=== PATIENT | male | born 1935 | race Asian ===

== ENCOUNTER 2016-09-30 12:16 | Inpatient (IN) | payer OTHER ==
[~2016-09-30] VITALS: Ht 162.6 cm; Wt 58.0 kg
[~2016-09-30 12:16] MED LIST: NOCURR
[2016-09-30] MEDS ORDERED: OS500 PO (12:19)
[2016-09-30] MEDS ORDERED: VALS80TA2 PO (12:19)
[2016-09-30 14:03] LABS: BASOPHILS % (AUTO) 1.5 % (0.0-2.0); EOSINOPHILS % (AUTO) 1.4 % (1.0-6.0); HEMATOCRIT 43.5 % (41-53); HEMOGLOBIN 14.6 g/dL (13.5-17.5); LYMPHOCYTES # (AUTO) 2.7 K/uL (1.0-4.8); LYMPHOCYTES % (AUTO) 38.2 % (22.0-44.0); MEAN CORPUSCULAR HEMOGLOBIN 29.6 pg (26.0-34.0); MEAN CORPUSCULAR HGB CONC 33.6 G/dL (31.0-37.0); MEAN CORPUSCULAR VOLUME 88 fL (80-100); MONOCYTES # (AUTO) 0.4 K/uL (0.1-1.0); MONOCYTES % (AUTO) 5.1 % (2.0-9.0); NEUTROPHILS # (AUTO) 3.8 K/uL (1.8-7.7); NEUTROPHILS % (AUTO) 53.8 % (40.0-70.0); PLATELET COUNT (AUTO) 202 K/uL (150-450); RED BLOOD CELL COUNT(AUTO) 4.94 MIL/uL (4.50-5.90); WHITE BLOOD COUNT (AUTO) 7.1 K/uL (4.5-11.0)
[2016-09-30 14:08] LABS: ANION GAP 9 mmol/L (8-16); CALCIUM, TOTAL 9.1 mg/dL (8.8-10.5); CARBON DIOXIDE 28 mmol/L (22-29); CHLORIDE 104 mmol/L (98-107); GLOMERULAR FILTR. RATE CALC > 60 mL/min (>60); POTASSIUM 4.1 mmol/L (3.5-5.1); SODIUM SERUM 141 mmol/L (136-145); UREA NITROGEN, BLOOD 17 mg/dL (7-18)
[2016-09-30 14:33] LABS: ALANINE AMINOTRANSFERASE 18 U/L (12-78); ALBUMIN 3.8 g/dL (3.4-5.0); ASPARTATE AMINOTRANSFERASE 18 U/L (15-37); BILIRUBIN,TOTAL 0.9 mg/dL (0.1-1.0); CREATINE KINASE MB 1.4 ng/mL (0-5); CREATINE KINASE, TOTAL 113 U/L (39-308); TOTAL PROTEIN, SERUM 7.6 g/dL (6.4-8.2)
[2016-09-30 14:45] LABS: PROTHROMBIN TIME 10.4 SEC (9.4-11.6)
[2016-09-30] MEDS ORDERED: DOCUSATE SODIUM 100 MG CAPSULE PO PRN (19:15)
[2016-09-30] MEDS ORDERED: ONDANSETRON HCL 4 MG/2 ML VIAL IVP PRN (19:15)
[2016-09-30] MEDS ORDERED: IPRATROPIUM BROMIDE 0.5 MG/2.5 ML NEB SOLUTION NEB PRN (19:15)
[2016-09-30] MEDS ORDERED: ALBUTEROL SULFATE 2.5 MG/0.5 ML NEB SOLUTION NEB PRN (19:15)
[2016-09-30] MEDS ORDERED: MAGNESIUM HYDROXIDE SUSPENSION 30 ML UDCUP PO PRN (19:15)
[2016-09-30] MEDS ORDERED: BISACODYL 10 MG RECTAL RECTAL SUPPOSITORY PR PRN (19:15)
[2016-09-30 20:00] VITALS: BP 171/98
[2016-09-30] MEDS: PANTOPRAZOLE SODIUM 40 MG DR TABLET PO SCH (21:06)
[2016-09-30] MEDS: ENALAPRILAT DIHYDRATE 1.25 MG/ML VIAL IVP PRN (21:07)
[2016-09-30 23:35] VITALS: BP 152/84
[2016-10-01] VITALS (7 sets, daily range): BP systolic 132–183; BP diastolic 58–86
[2016-10-01] MEDS: ENALAPRILAT DIHYDRATE 1.25 MG/ML VIAL IVP PRN ×2 (04:43→10:26)
[2016-10-01] MEDS ORDERED: PNEUMOCOCCAL VACCINE POLYVALENT 0.5 ML VIAL [PPSV23] IM ONE (05:30)
[2016-10-01 06:47] LABS: ALANINE AMINOTRANSFERASE 9 U/L (12-78); ALBUMIN 3.3 g/dL (3.4-5.0); ANION GAP 12 mmol/L (8-16); ASPARTATE AMINOTRANSFERASE 18 U/L (15-37); BILIRUBIN,TOTAL 1.1 mg/dL (0.1-1.0); CALCIUM, TOTAL 8.5 mg/dL (8.8-10.5); CARBON DIOXIDE 24 mmol/L (22-29); CHLORIDE 104 mmol/L (98-107); CHOL/HDL RATIO 3.5 (4.2-7.3); CREATININE 0.96 mg/dL (0.60-1.30); GLOMERULAR FILTR. RATE CALC > 60 mL/min (>60); PHOSPHORUS 3.2 mg/dL (2.5-4.9); POTASSIUM 3.5 mmol/L (3.5-5.1); SODIUM SERUM 140 mmol/L (136-145); TOTAL PROTEIN, SERUM 6.6 g/dL (6.4-8.2); UREA NITROGEN, BLOOD 11 mg/dL (7-18)
[2016-10-01 06:48] LABS: BASOPHILS % (AUTO) 0.9 % (0.0-2.0); EOSINOPHILS % (AUTO) 1.9 % (1.0-6.0); HEMATOCRIT 41.7 % (41-53); HEMOGLOBIN 14.1 g/dL (13.5-17.5); LYMPHOCYTES % (AUTO) 26.1 % (22.0-44.0); MEAN CORPUSCULAR HEMOGLOBIN 29.9 pg (26.0-34.0); MEAN CORPUSCULAR HGB CONC 33.9 G/dL (31.0-37.0); MEAN CORPUSCULAR VOLUME 88 fL (80-100); MONOCYTES # (AUTO) 0.5 K/uL (0.1-1.0); MONOCYTES % (AUTO) 6.9 % (2.0-9.0); NEUTROPHILS # (AUTO) 4.9 K/uL (1.8-7.7); NEUTROPHILS % (AUTO) 64.2 % (40.0-70.0); PLATELET COUNT (AUTO) 192 K/uL (150-450); RED BLOOD CELL COUNT(AUTO) 4.73 MIL/uL (4.50-5.90); RED CELL DISTRIBUTION WIDTH 13.9 % (11.5-14.5); WHITE BLOOD COUNT (AUTO) 7.6 K/uL (4.5-11.0)
[2016-10-01] MEDS: PANTOPRAZOLE SODIUM 40 MG DR TABLET PO SCH (09:00)
[2016-10-01] MEDS: AmLODIPine BESYLATE 5 MG TABLET PO SCH (09:00)
[2016-10-01] MEDS ORDERED: MAGNESIUM SULFATE 4 GM/WATER 100 ML IV PRN (09:45)
[2016-10-01] MEDS ORDERED: POTASSIUM CHLORIDE 10% 40 MEQ/30 ML LIQUID UDCUP PO PRN (09:45)
[2016-10-01] MEDS ORDERED: MAGNESIUM OXIDE 400 MG TABLET PO PRN (09:45)
[2016-10-01] MEDS ORDERED: POTASSIUM CHL 10 MEQ/WATER 50 ML IV PRN (09:45)
[2016-10-01] MEDS ORDERED: DEXTROSE 5%-0.45% SODIUM CHL 1,000 ML IV ONE (09:45)
[2016-10-01] MEDS ORDERED: POTASSIUM CHLORIDE 20 MEQ ER TABLET PO PRN (09:45)
[2016-10-01] MEDS ORDERED: MAGNESIUM SULFATE 2 GM in DEXTROSE 5%-WATER 50 ML IV PRN (09:45)
[2016-10-01] MEDS ORDERED: PROPOFOL 1% 20 ML VIAL IVP ONE (12:00)
[2016-10-01] MEDS ORDERED: GLYCOPYRROLATE 0.2 MG/ML VIAL IM ONE (12:00)
[2016-10-01] MEDS ORDERED: ROCURONIUM BROMIDE 10 MG/ML 5 ML VIAL IVP ONE (12:00)
[2016-10-01] MEDS ORDERED: NEOSTIGMINE METHYLSULFATE 1 MG/ML 10 ML VIAL IVP ONE (12:00)
[2016-10-01] MEDS ORDERED: FentaNYL CITRATE-PF 100 MCG/2 ML VIAL IVP ONE (12:00)
[2016-10-01] MEDS ORDERED: MIDAZOLAM HCL 2 MG/2 ML VIAL IVP ONE (12:00)
[2016-10-01] MEDS ORDERED: CefoTEtan DISODIUM 1 GM/VIAL IVP ONE (12:00)
[2016-10-01] MEDS ORDERED: ESMOLOL HCL 10 MG/ML 10 ML VIAL IVP ONE (12:00)
[2016-10-01] MEDS ORDERED: LIDOCAINE HCL/PF 2% 5 ML SYRINGE IVP ONE (12:00)
[2016-10-01] MEDS ORDERED: SODIUM CHLORIDE 0.9% 1,000 ML IV ONE ×2 (13:15→16:01)
[2016-10-01] MEDS ORDERED: CeFAZolin 1 GM/DEXTROSE 50 ML IV ONE (13:15)
[2016-10-01] MEDS ORDERED: CIPROFLOXACIN 400 MG/D5% WATER 200 ML IV ONE (13:15)
[2016-10-01 13:44] LABS: BASOPHILS % (AUTO) 0.5 % (0.0-2.0); EOSINOPHILS % (AUTO) 0.6 % (1.0-6.0); HEMATOCRIT 42.8 % (41-53); HEMOGLOBIN 14.5 g/dL (13.5-17.5); LYMPHOCYTES # (AUTO) 1.6 K/uL (1.0-4.8); LYMPHOCYTES % (AUTO) 22.8 % (22.0-44.0); MEAN CORPUSCULAR HEMOGLOBIN 29.7 pg (26.0-34.0); MEAN CORPUSCULAR HGB CONC 33.8 G/dL (31.0-37.0); MEAN CORPUSCULAR VOLUME 88 fL (80-100); MONOCYTES # (AUTO) 0.4 K/uL (0.1-1.0); MONOCYTES % (AUTO) 5.3 % (2.0-9.0); NEUTROPHILS # (AUTO) 4.9 K/uL (1.8-7.7); NEUTROPHILS % (AUTO) 70.8 % (40.0-70.0); PLATELET COUNT (AUTO) 215 K/uL (150-450); RED BLOOD CELL COUNT(AUTO) 4.87 MIL/uL (4.50-5.90); RED CELL DISTRIBUTION WIDTH 13.9 % (11.5-14.5); WHITE BLOOD COUNT (AUTO) 6.9 K/uL (4.5-11.0)
[2016-10-01 14:48] LABS: ANION GAP 15 mmol/L (8-16); CALCIUM, TOTAL 8.5 mg/dL (8.8-10.5); CARBON DIOXIDE 21 mmol/L (22-29); CHLORIDE 102 mmol/L (98-107); CREATININE 0.94 mg/dL (0.60-1.30); GLOMERULAR FILTR. RATE CALC > 60 mL/min (>60); POTASSIUM 3.6 mmol/L (3.5-5.1); SODIUM SERUM 138 mmol/L (136-145); UREA NITROGEN, BLOOD 11 mg/dL (7-18)
[2016-10-01 14:53] LABS: ALANINE AMINOTRANSFERASE 15 U/L (12-78); ALBUMIN 3.5 g/dL (3.4-5.0); ASPARTATE AMINOTRANSFERASE 23 U/L (15-37); BILIRUBIN,TOTAL 0.9 mg/dL (0.1-1.0); TOTAL PROTEIN, SERUM 7.1 g/dL (6.4-8.2)
[2016-10-01] MEDS ORDERED: HEPARIN SODIUM 1000 UNITS/NS 500 ML ONE (15:58)
[2016-10-01] MEDS ORDERED: GUM MASTIC/STORAX/MSAL/ALCOHOL LIQUID 0.67 ML VIAL TP ONE (15:58)
[2016-10-01] MEDS ORDERED: LIDOCAINE HCL 1%/EPI 1:200,000/PF 30 ML VIAL ONE (16:00)
[2016-10-01] MEDS ORDERED: VANCOMYCIN HCL 1 GM/VIAL ONE ×2 (16:00→21:19)
[2016-10-01] MEDS ORDERED: SODIUM CHLORIDE 0.9% 50 ML ONE (16:01)
[2016-10-01] MEDS ORDERED: GELATIN SPONGE,ABSORBABLE 100 MM TP ONE ×3 (16:01→21:20)
[2016-10-01] MEDS ORDERED: SODIUM CHLORIDE 0.9% 250 ML IV ONE (16:01)
[2016-10-01] MEDS ORDERED: SODIUM CHLORIDE 0.9% 0 ML ONE (16:01)
[2016-10-01] MEDS ORDERED: RINGERS SOLUTION,LACTATED 1,000 ML IV ONE ×3 (16:01→17:36)
[2016-10-01] MEDS ORDERED: THROMBIN, BOVINE 20000 UNITS/VIAL POWDER TP ONE ×3 (16:02→21:21)
[2016-10-01] MEDS ORDERED: BACITRACIN 50,000 UNITS/VIAL ONE (16:02)
[2016-10-01 18:12] LABS: ABG A-A DIFF O2 16.6 mmHg (10-20.0); ABG BASE EXCESS -4.6 mmol/L (-2.0-3.0); ABG HCO3 21.7 mmol/L (22.0-26.0); ABG OXYHEMOGLOBIN 96.7 % (94.0-100.0); ABG PCO2 31 mmHg (35-45); ABG PH 7.422 (7.35-7.450); TEMPERATURE, FAHRENHEIT, BG 98.6 FAHREN (96.0-98.6)
[2016-10-01] MEDS ORDERED: HYDROmorphone 2 MG/ML SYRINGE IVP PRN (18:30)
[2016-10-01] MEDS ORDERED: MANNITOL 25%-12.5 GM/50 ML VIAL IVP ONE (18:46)
[2016-10-01] MEDS ORDERED: PHENYTOIN SODIUM 50 MG/ML IV ONE ×3 (19:17→19:33)
[2016-10-01] MEDS ORDERED: BACITRACIN 28.4 GM OINTMENT TP ONE (19:41)
[2016-10-01] MEDS ORDERED: LORazepam 2 MG/ML VIAL IVP PRN (20:17)
[2016-10-01] MEDS ORDERED: LORazepam 2 MG/ML VIAL ONE (21:18)
[2016-10-01] MEDS ORDERED: SODIUM CHLORIDE 0.9% 10 ML ONE (21:19)
[2016-10-01] MEDS ORDERED: LIDOCAINE HCL 1%/EPI 1:200,000/PF 10 ML VIAL ONE (21:19)
[2016-10-01] MEDS ORDERED: GELATIN SPONGE,ABSORBABLE 50 MM TP ONE (21:20)
[2016-10-01] MEDS ORDERED: ROCURONIUM BROMIDE 10 MG/ML 5 ML VIAL ONE (21:31)
[2016-10-01] MEDS ORDERED: PHENYLEPHRINE 200 MG/D5%-WATER 250 ML IV ONE (21:40)
[2016-10-01 22:10] LABS: BASOPHILS # (AUTO) 0.04 K/uL (0.00-0.20); BASOPHILS % (AUTO) 0.3 % (0.0-2.0); EOSINOPHILS # (AUTO) 0.06 K/uL (0.00-0.70); EOSINOPHILS % (AUTO) 0.49 % (1.0-6.0); HEMATOCRIT 39.9 % (41-53); HEMOGLOBIN 13.2 g/dL (13.5-17.5); LYMPHOCYTES # (AUTO) 1.4 K/uL (1.0-4.8); LYMPHOCYTES % (AUTO) 12.1 % (22.0-44.0); MEAN CORPUSCULAR HEMOGLOBIN 29.8 pg (26.0-34.0); MEAN CORPUSCULAR VOLUME 90 fL (80-100); MONOCYTES # (AUTO) 0.3 K/uL (0.1-1.0); MONOCYTES % (AUTO) 2.6 % (2.0-9.0); NEUTROPHILS # (AUTO) 9.6 K/uL (1.8-7.7); NEUTROPHILS % (AUTO) 84.5 % (40.0-70.0); PLATELET COUNT (AUTO) 183 K/uL (150-450); RED BLOOD CELL COUNT(AUTO) 4.42 MIL/uL (4.50-5.90); RED CELL DISTRIBUTION WIDTH 13.6 % (11.5-14.5); WHITE BLOOD COUNT (AUTO) 11.4 K/uL (4.5-11.0)
[2016-10-01 22:20] LABS: PROTHROMBIN TIME 10.9 SEC (9.4-11.6)
[2016-10-01] MEDS ORDERED: PROPOFOL 1000 MG/ISO-OSM 100 ML IV ONE (22:24)
[2016-10-01] MEDS: PROPOFOL 1000 MG/ISO-OSM 100 ML IV PRN (22:25)
[2016-10-01 22:59] LABS: ABG BASE EXCESS -9.4 mmol/L (-2.0-3.0); ABG HCO3 17.6 mmol/L (22.0-26.0); ABG OXYHEMOGLOBIN 98.7 % (94.0-100.0); ABG PCO2 38 mmHg (35-45); ABG PH 7.282 (7.35-7.450); TEMPERATURE, FAHRENHEIT, BG 97.7 FAHREN (96.0-98.6)
[2016-10-01] MEDS ORDERED: NOREPINEPHRINE 4 MG/D5%-WATER 250 ML IV PRN (22:59)
[2016-10-01] MEDS ORDERED: FentaNYL CITRATE PF 500 MCG in DEXTROSE 5%-WATER 90 ML IV PRN (22:59)
[2016-10-01] MEDS ORDERED: PHENYLEPHRINE 200 MG/D5%-WATER 250 ML IV PRN (23:00)
[2016-10-01] MEDS: LevETIRAcetam 500 MG in DEXTROSE 5%-WATER 100 ML IV SCH (23:13)
[2016-10-01] MEDS: CeFAZolin 2 GM/DEXTROSE 50 ML IV SCH (23:13)
[2016-10-02] VITALS: BP 143/57
[2016-10-02] MEDS: OxyCODONE HCL/ACETAMINOPHEN 10-325 MG TABLET PO SCH ×6 (00:16→20:00)
[2016-10-02 04:00] VITALS: BP 133/63
[2016-10-02] MEDS: CeFAZolin 2 GM/DEXTROSE 50 ML IV SCH ×3 (05:05→20:26)
[2016-10-02 05:41] LABS: BASOPHILS # (AUTO) 0.01 K/uL (0.00-0.20); BASOPHILS % (AUTO) 0.1 % (0.0-2.0); EOSINOPHILS % (AUTO) 0 % (1.0-6.0); HEMATOCRIT 40.5 % (41-53); HEMOGLOBIN 13.5 g/dL (13.5-17.5); LYMPHOCYTES # (AUTO) 0.8 K/uL (1.0-4.8); LYMPHOCYTES % (AUTO) 5.6 % (22.0-44.0); MEAN CORPUSCULAR HEMOGLOBIN 29.8 pg (26.0-34.0); MEAN CORPUSCULAR HGB CONC 33.3 G/dL (31.0-37.0); MEAN CORPUSCULAR VOLUME 89 fL (80-100); MONOCYTES # (AUTO) 0.7 K/uL (0.1-1.0); MONOCYTES % (AUTO) 4.9 % (2.0-9.0); NEUTROPHILS # (AUTO) 12.9 K/uL (1.8-7.7); PLATELET COUNT (AUTO) 193 K/uL (150-450); RED BLOOD CELL COUNT(AUTO) 4.53 MIL/uL (4.50-5.90); RED CELL DISTRIBUTION WIDTH 13.7 % (11.5-14.5); WHITE BLOOD COUNT (AUTO) 14.4 K/uL (4.5-11.0)
[2016-10-02 06:02] LABS: CALCIUM, TOTAL 8.2 mg/dL (8.8-10.5); CREATININE 1.38 mg/dL (0.60-1.30); MAGNESIUM 1.8 mg/dL (1.80-2.40); POTASSIUM 3.7 mmol/L (3.5-5.1)
[2016-10-02 06:41] LABS: NEUTROPHILS % (AUTO) 89.5 % (40.0-70.0)
[2016-10-02] MEDS: LevETIRAcetam 500 MG in DEXTROSE 5%-WATER 100 ML IV SCH ×2 (06:42→18:26)
[2016-10-02 08:00] VITALS: BP 88/57
[2016-10-02] MEDS: ATORVASTATIN CALCIUM 20 MG TABLET PO SCH (08:35)
[2016-10-02] MEDS: AmLODIPine BESYLATE 5 MG TABLET PO SCH (08:36)
[2016-10-02] MEDS: PANTOPRAZOLE SODIUM 40 MG DR TABLET PO SCH (08:36)
[2016-10-02] MEDS: SODIUM CHLORIDE 3% 500 ML IV SCH (09:15)
[2016-10-02 12:00] VITALS: BP 126/54
[2016-10-02 16:00] VITALS: BP 142/56
[2016-10-02 18:31] LABS: CREATINE KINASE MB 3.7 ng/mL (0-5); CREATINE KINASE, TOTAL 348 U/L (39-308)
[2016-10-02 20:00] VITALS: BP 107/47
[2016-10-03] VITALS: BP 126/48
[2016-10-03 02:14] LABS: SODIUM SERUM 143 mmol/L (136-145)
[2016-10-03 02:47] LABS: CREATINE KINASE MB 2.5 ng/mL (0-5); CREATINE KINASE, TOTAL 271 U/L (39-308)
[2016-10-03] MEDS: SODIUM CHLORIDE 3% 500 ML IV SCH ×2 (03:21→23:47)
[2016-10-03] MEDS: OxyCODONE HCL/ACETAMINOPHEN 10-325 MG TABLET PO SCH ×7 (03:21→23:49)
[2016-10-03] MEDS: PROPOFOL 1000 MG/ISO-OSM 100 ML IV PRN ×2 (03:21→13:27)
[2016-10-03 04:00] VITALS: BP 131/53
[2016-10-03] MEDS: CeFAZolin 2 GM/DEXTROSE 50 ML IV SCH ×3 (05:00→19:23)
[2016-10-03] MEDS: LevETIRAcetam 500 MG in DEXTROSE 5%-WATER 100 ML IV SCH ×2 (06:00→18:41)
[2016-10-03 06:07] LABS: BASOPHILS % (AUTO) 0.3 % (0.0-2.0); EOSINOPHILS % (AUTO) 0.1 % (1.0-6.0); HEMATOCRIT 34.7 % (41-53); HEMOGLOBIN 11.7 g/dL (13.5-17.5); LYMPHOCYTES # (AUTO) 1.9 K/uL (1.0-4.8); LYMPHOCYTES % (AUTO) 14.3 % (22.0-44.0); MEAN CORPUSCULAR HEMOGLOBIN 30.3 pg (26.0-34.0); MEAN CORPUSCULAR HGB CONC 33.7 G/dL (31.0-37.0); MEAN CORPUSCULAR VOLUME 90 fL (80-100); MONOCYTES % (AUTO) 7.3 % (2.0-9.0); NEUTROPHILS # (AUTO) 10.5 K/uL (1.8-7.7); PLATELET COUNT (AUTO) 163 K/uL (150-450); RED BLOOD CELL COUNT(AUTO) 3.86 MIL/uL (4.50-5.90); RED CELL DISTRIBUTION WIDTH 13.9 % (11.5-14.5); WHITE BLOOD COUNT (AUTO) 13.5 K/uL (4.5-11.0)
[2016-10-03] MEDS: HydrALAZINE HCL 20 MG/ML VIAL IVP PRN ×2 (06:26→19:21)
[2016-10-03 06:33] LABS: ALBUMIN 2.3 g/dL (3.4-5.0); BILIRUBIN,TOTAL 0.3 mg/dL (0.1-1.0); CREATININE 1.91 mg/dL (0.60-1.30); MAGNESIUM 1.8 mg/dL (1.80-2.40); PHOSPHORUS 4.9 mg/dL (2.5-4.9); POTASSIUM 4.1 mmol/L (3.5-5.1); THYROID STIMULATING HORMONE 0.38 uIU/mL (0.36-3.74); TOTAL PROTEIN, SERUM 5.4 g/dL (6.4-8.2)
[2016-10-03 07:50] LABS: ABG A-A DIFF O2 116.6 mmHg (10-20.0); ABG BASE EXCESS -2.5 mmol/L (-2.0-3.0); ABG HCO3 23.4 mmol/L (22.0-26.0); ABG OXYHEMOGLOBIN 98.3 % (94.0-100.0); ABG PCO2 27 mmHg (35-45); ABG PH 7.499 (7.35-7.450); TEMPERATURE, FAHRENHEIT, BG 98.1 FAHREN (96.0-98.6)
[2016-10-03 08:00] VITALS: BP 111/45
[2016-10-03] MEDS: ATORVASTATIN CALCIUM 20 MG TABLET PO SCH (09:23)
[2016-10-03] MEDS: PANTOPRAZOLE SODIUM 40 MG DR TABLET PO SCH (09:23)
[2016-10-03] MEDS: AmLODIPine BESYLATE 5 MG TABLET PO SCH (09:23)
[2016-10-03 11:40] LABS: CREATINE KINASE MB 2.7 ng/mL (0-5); CREATINE KINASE, TOTAL 270 U/L (39-308); SODIUM SERUM 144 mmol/L (136-145)
[2016-10-03 12:00] VITALS: BP 131/48
[2016-10-03] MEDS ORDERED: HEPARIN SODIUM 1000 UNITS/NS 500 ML ONE (15:23)
[2016-10-03 16:00] VITALS: BP 110/40
[2016-10-03 20:00] VITALS: BP 113/43
[2016-10-04] VITALS: BP 118/45
[2016-10-04 04:00] VITALS: BP 135/64
[2016-10-04] MEDS: OxyCODONE HCL/ACETAMINOPHEN 10-325 MG TABLET PO SCH (04:00)
[2016-10-04] MEDS: CeFAZolin 2 GM/DEXTROSE 50 ML IV SCH ×3 (04:50→21:07)
[2016-10-04 05:46] LABS: BASOPHILS % (AUTO) 0.2 % (0.0-2.0); EOSINOPHILS % (AUTO) 0 % (1.0-6.0); HEMATOCRIT 30.6 % (41-53); HEMOGLOBIN 10.3 g/dL (13.5-17.5); LYMPHOCYTES # (AUTO) 0.9 K/uL (1.0-4.8); LYMPHOCYTES % (AUTO) 7.6 % (22.0-44.0); MEAN CORPUSCULAR HEMOGLOBIN 29.6 pg (26.0-34.0); MEAN CORPUSCULAR HGB CONC 33.5 G/dL (31.0-37.0); MEAN CORPUSCULAR VOLUME 88 fL (80-100); MONOCYTES # (AUTO) 0.8 K/uL (0.1-1.0); MONOCYTES % (AUTO) 6.6 % (2.0-9.0); NEUTROPHILS # (AUTO) 10.7 K/uL (1.8-7.7); PLATELET COUNT (AUTO) 172 K/uL (150-450); RED BLOOD CELL COUNT(AUTO) 3.47 MIL/uL (4.50-5.90); RED CELL DISTRIBUTION WIDTH 13.9 % (11.5-14.5); WHITE BLOOD COUNT (AUTO) 12.5 K/uL (4.5-11.0)
[2016-10-04 05:49] LABS: NEUTROPHILS % (AUTO) 85.6 % (40.0-70.0)
[2016-10-04 05:53] LABS: ALBUMIN 2.3 g/dL (3.4-5.0); BILIRUBIN,TOTAL 0.4 mg/dL (0.1-1.0); CALCIUM, TOTAL 8.3 mg/dL (8.8-10.5); CREATININE 1.46 mg/dL (0.60-1.30); POTASSIUM 3.9 mmol/L (3.5-5.1); TOTAL PROTEIN, SERUM 5.6 g/dL (6.4-8.2)
[2016-10-04] MEDS: LevETIRAcetam 500 MG in DEXTROSE 5%-WATER 100 ML IV SCH ×2 (06:05→18:14)
[2016-10-04 08:00] VITALS: BP 137/79
[2016-10-04] MEDS: PANTOPRAZOLE SODIUM 40 MG DR TABLET PO SCH (09:03)
[2016-10-04] MEDS: ATORVASTATIN CALCIUM 20 MG TABLET PO SCH (09:03)
[2016-10-04 10:30] LABS: ABG A-A DIFF O2 61.2 mmHg (10-20.0); ABG BASE EXCESS -2.5 mmol/L (-2.0-3.0); ABG HCO3 23.1 mmol/L (22.0-26.0); ABG PCO2 30 mmHg (35-45); ABG PH 7.472 (7.35-7.450); TEMPERATURE, FAHRENHEIT, BG 98.5 FAHREN (96.0-98.6)
[2016-10-04 12:00] VITALS: BP 140/77
[2016-10-04] MEDS ORDERED: OxyCODONE HCL/ACETAMINOPHEN 10-325 MG TABLET PO PRN (12:00)
[2016-10-04] MEDS: AmLODIPine BESYLATE 5 MG TABLET PO SCH (12:29)
[2016-10-04] MEDS ORDERED: SODIUM CHLORIDE 0.9% 250 ML IV ONE (12:37)
[2016-10-04 16:00] VITALS: BP 148/77
[2016-10-04 20:00] VITALS: BP 139/72
[2016-10-04] MEDS: SODIUM CHLORIDE 3% 500 ML IV SCH (21:07)
[2016-10-05] VITALS: BP 148/53
[2016-10-05] MEDS: HydrALAZINE HCL 20 MG/ML VIAL IVP PRN (00:41)
[2016-10-05 04:00] VITALS: BP 148/79
[2016-10-05] MEDS: CeFAZolin 2 GM/DEXTROSE 50 ML IV SCH ×3 (04:34→21:33)
[2016-10-05] MEDS: ACETAMINOPHEN 325 MG TABLET PO PRN (05:32)
[2016-10-05] MEDS: LevETIRAcetam 500 MG in DEXTROSE 5%-WATER 100 ML IV SCH ×2 (06:38→18:45)
[2016-10-05 07:11] LABS: CALCIUM, TOTAL 8.2 mg/dL (8.8-10.5); CREATININE 1.28 mg/dL (0.60-1.30); POTASSIUM 3.9 mmol/L (3.5-5.1)
[2016-10-05 07:43] LABS: HEMATOCRIT 29.4 % (41-53); HEMOGLOBIN 9.8 g/dL (13.5-17.5); MEAN CORPUSCULAR HEMOGLOBIN 29.8 pg (26.0-34.0); MEAN CORPUSCULAR HGB CONC 33.4 G/dL (31.0-37.0); MEAN CORPUSCULAR VOLUME 89 fL (80-100); PLATELET COUNT (AUTO) 214 K/uL (150-450); RED CELL DISTRIBUTION WIDTH 14.7 % (11.5-14.5); WHITE BLOOD COUNT (AUTO) 9.9 K/uL (4.5-11.0)
[2016-10-05 08:00] VITALS: BP 134/70
[2016-10-05 08:28] LABS: ABG A-A DIFF O2 83.3 mmHg (10-20.0); ABG BASE EXCESS -1.9 mmol/L (-2.0-3.0); ABG HCO3 23.4 mmol/L (22.0-26.0); ABG OXYHEMOGLOBIN 97.2 % (94.0-100.0); ABG PCO2 31 mmHg (35-45); ABG PH 7.472 (7.35-7.450); ALLEN TEST, BLOOD GAS Positive; TEMPERATURE, FAHRENHEIT, BG 98.5 FAHREN (96.0-98.6)
[2016-10-05] MEDS: PANTOPRAZOLE SODIUM 40 MG DR TABLET PO SCH (09:30)
[2016-10-05] MEDS: ATORVASTATIN CALCIUM 20 MG TABLET PO SCH (09:30)
[2016-10-05] MEDS: AmLODIPine BESYLATE 5 MG TABLET PO SCH (09:30)
[2016-10-05] MEDS: ENALAPRILAT DIHYDRATE 1.25 MG/ML VIAL IVP PRN (10:50)
[2016-10-05 10:53] LABS: BAND NEUTROPHILS % (MANUAL) 13 % (1-5); LYMPHOCYTES % (MANUAL) 21 % (22-44); RBC MORPHOLOGY COMMENT NORMAL RBC MORPH; TOTAL CELLS COUNTED 100
[2016-10-05 12:00] VITALS: BP 131/85
[2016-10-05] MEDS ORDERED: SODIUM CHLORIDE 0.9% 250 ML IV ONE (14:15)
[2016-10-05] MEDS ORDERED: DEXTROSE 5%-WATER 1,000 ML IV SCH (15:30)
[2016-10-05 16:00] VITALS: BP 140/72
[2016-10-05 20:00] VITALS: BP 146/76
[2016-10-05 21:10] LABS: ANION GAP 6 mmol/L (8-16); CALCIUM, TOTAL 8.4 mg/dL (8.8-10.5); CARBON DIOXIDE 26 mmol/L (22-29); CHLORIDE 121 mmol/L (98-107); CREATININE 1.06 mg/dL (0.60-1.30); GLOMERULAR FILTR. RATE CALC > 60 mL/min (>60); SODIUM SERUM 153 mmol/L (136-145); UREA NITROGEN, BLOOD 35 mg/dL (7-18)
[2016-10-06] VITALS: BP 144/78
[2016-10-06] MEDS: HydrALAZINE HCL 20 MG/ML VIAL IVP PRN (03:09)
[2016-10-06 04:00] VITALS: BP 124/68
[2016-10-06 05:00] LABS: HEMATOCRIT 29.8 % (41-53); HEMOGLOBIN 9.8 g/dL (13.5-17.5); MEAN CORPUSCULAR HEMOGLOBIN 29.3 pg (26.0-34.0); MEAN CORPUSCULAR HGB CONC 32.9 G/dL (31.0-37.0); MEAN CORPUSCULAR VOLUME 89 fL (80-100); PLATELET COUNT (AUTO) 208 K/uL (150-450); RED BLOOD CELL COUNT(AUTO) 3.34 MIL/uL (4.50-5.90); RED CELL DISTRIBUTION WIDTH 14.3 % (11.5-14.5); WHITE BLOOD COUNT (AUTO) 12.3 K/uL (4.5-11.0)
[2016-10-06 05:08] LABS: ANION GAP 10 mmol/L (8-16); CALCIUM, TOTAL 8.7 mg/dL (8.8-10.5); CARBON DIOXIDE 26 mmol/L (22-29); CHLORIDE 121 mmol/L (98-107); CREATININE 1.11 mg/dL (0.60-1.30); GLOMERULAR FILTR. RATE CALC > 60 mL/min (>60); POTASSIUM 3.9 mmol/L (3.5-5.1); SODIUM SERUM 157 mmol/L (136-145); UREA NITROGEN, BLOOD 28 mg/dL (7-18)
[2016-10-06] MEDS: CeFAZolin 2 GM/DEXTROSE 50 ML IV SCH (05:19)
[2016-10-06 05:37] LABS: BAND NEUTROPHILS % (MANUAL) 14 % (1-5); LYMPHOCYTES % (MANUAL) 21 % (22-44); TOTAL CELLS COUNTED 100
[2016-10-06 05:38] LABS: RBC MORPHOLOGY COMMENT NORMAL RBC MORPH
[2016-10-06] MEDS: ENALAPRILAT DIHYDRATE 1.25 MG/ML VIAL IVP PRN (06:43)
[2016-10-06] MEDS: LevETIRAcetam 500 MG in DEXTROSE 5%-WATER 100 ML IV SCH ×2 (06:46→17:48)
[2016-10-06] MEDS ORDERED: *CLINICAL-LEVOFLOXACIN IVPB DOSING CLINICAL ONE ×2 (07:15)
[2016-10-06 08:00] VITALS: BP 130/77
[2016-10-06] MEDS: PANTOPRAZOLE SODIUM 40 MG DR TABLET PO SCH (08:38)
[2016-10-06] MEDS: ATORVASTATIN CALCIUM 20 MG TABLET PO SCH (08:38)
[2016-10-06] MEDS: AmLODIPine BESYLATE 5 MG TABLET PO SCH (08:38)
[2016-10-06] MEDS: DEXTROSE 5%-WATER 1,000 ML IV SCH (08:39)
[2016-10-06 08:53] LABS: ABG A-A DIFF O2 73.1 mmHg (10-20.0); ABG BASE EXCESS 0.3 mmol/L (-2.0-3.0); ABG HCO3 25.3 mmol/L (22.0-26.0); ABG OXYHEMOGLOBIN 97.3 % (94.0-100.0); ABG PCO2 32 mmHg (35-45); TEMPERATURE, FAHRENHEIT, BG 98.6 FAHREN (96.0-98.6)
[2016-10-06 09:01] LABS: ALLEN TEST, BLOOD GAS Positive
[2016-10-06] MEDS: LEVOFLOXACIN 750 MG/D5% WATER 150 ML IV SCH (09:16)
[2016-10-06 12:00] VITALS: BP 133/78
[2016-10-06 13:04] LABS: ANION GAP 7 mmol/L (8-16); CALCIUM, TOTAL 8.2 mg/dL (8.8-10.5); CARBON DIOXIDE 27 mmol/L (22-29); CHLORIDE 118 mmol/L (98-107); CREATININE 1.08 mg/dL (0.60-1.30); GLOMERULAR FILTR. RATE CALC > 60 mL/min (>60); POTASSIUM 3.7 mmol/L (3.5-5.1); SODIUM SERUM 152 mmol/L (136-145); UREA NITROGEN, BLOOD 28 mg/dL (7-18)
[2016-10-06 16:00] VITALS: BP 128/68
[2016-10-06] MEDS ORDERED: SODIUM CHLORIDE 0.9% 250 ML IV ONE (17:16)
[2016-10-06] MEDS ORDERED: SODIUM CHLORIDE 0.9% 500 ML IV ONE (17:16)
[2016-10-06 20:23] VITALS: BP 138/74
[2016-10-06 21:12] LABS: ORIG DRAW (USER) PTCARESTAF
[2016-10-07] VITALS (7 sets, daily range): BP systolic 132–156; BP diastolic 71–90
[2016-10-07] MEDS: DEXTROSE 5%-WATER 1,000 ML IV SCH ×2 (03:30→12:04)
[2016-10-07] MEDS: HydrALAZINE HCL 20 MG/ML VIAL IVP PRN (04:23)
[2016-10-07] MEDS: ACETAMINOPHEN 325 MG TABLET PO PRN ×2 (04:24→12:01)
[2016-10-07 06:18] LABS: BASOPHILS % (AUTO) 0.2 % (0.0-2.0); EOSINOPHILS % (AUTO) 0.3 % (1.0-6.0); HEMATOCRIT 28.6 % (41-53); HEMOGLOBIN 9.5 g/dL (13.5-17.5); LYMPHOCYTES # (AUTO) 1.2 K/uL (1.0-4.8); LYMPHOCYTES % (AUTO) 9.8 % (22.0-44.0); MEAN CORPUSCULAR HEMOGLOBIN 29.6 pg (26.0-34.0); MEAN CORPUSCULAR HGB CONC 33.2 G/dL (31.0-37.0); MEAN CORPUSCULAR VOLUME 89 fL (80-100); MONOCYTES # (AUTO) 1.1 K/uL (0.1-1.0); MONOCYTES % (AUTO) 9.4 % (2.0-9.0); NEUTROPHILS # (AUTO) 9.5 K/uL (1.8-7.7); NEUTROPHILS % (AUTO) 80.3 % (40.0-70.0); PLATELET COUNT (AUTO) 206 K/uL (150-450); RED BLOOD CELL COUNT(AUTO) 3.22 MIL/uL (4.50-5.90); RED CELL DISTRIBUTION WIDTH 14.1 % (11.5-14.5); WHITE BLOOD COUNT (AUTO) 11.8 K/uL (4.5-11.0)
[2016-10-07 06:24] LABS: ANION GAP 7 mmol/L (8-16); CALCIUM, TOTAL 8.4 mg/dL (8.8-10.5); CARBON DIOXIDE 28 mmol/L (22-29); CHLORIDE 115 mmol/L (98-107); CREATININE 1.02 mg/dL (0.60-1.30); GLOMERULAR FILTR. RATE CALC > 60 mL/min (>60); POTASSIUM 3.9 mmol/L (3.5-5.1); SODIUM SERUM 150 mmol/L (136-145); UREA NITROGEN, BLOOD 28 mg/dL (7-18)
[2016-10-07] MEDS: LevETIRAcetam 500 MG in DEXTROSE 5%-WATER 100 ML IV SCH ×2 (06:34→18:45)
[2016-10-07] MEDS: ATORVASTATIN CALCIUM 20 MG TABLET PO SCH (08:44)
[2016-10-07] MEDS: AmLODIPine BESYLATE 5 MG TABLET PO SCH (08:44)
[2016-10-07] MEDS: PANTOPRAZOLE SODIUM 40 MG DR TABLET PO SCH (08:44)
[2016-10-07 09:28] LABS: ABG A-A DIFF O2 53.5 mmHg (10-20.0); ABG BASE EXCESS 3.8 mmol/L (-2.0-3.0); ABG HCO3 27.9 mmol/L (22.0-26.0); ABG OXYHEMOGLOBIN 97.7 % (94.0-100.0); ABG PCO2 37 mmHg (35-45); ABG PH 7.486 (7.35-7.450); ALLEN TEST, BLOOD GAS Positive; TEMPERATURE, FAHRENHEIT, BG 100.5 FAHREN (96.0-98.6)
[2016-10-07] MEDS ORDERED: ACETAMINOPHEN 650 MG/20.3 ML SOLUTION UDCUP NG PRN (12:00)
[2016-10-07] MEDS ORDERED: DiphenhydrAMINE HCL 50 MG/ML VIAL IVP PRN (14:45)
[2016-10-07] MEDS ORDERED: ONDANSETRON HCL 4 MG/2 ML VIAL IVP PRN (14:45)
[2016-10-07] MEDS: MORPHINE SULFATE 100 MG/NS/PF 100 ML IV PRN (17:09)
[2016-10-08 05:08] VITALS: BP 146/76
[2016-10-08] MEDS: DEXTROSE 5%-WATER 1,000 ML IV SCH (06:20)
[2016-10-08] MEDS: LevETIRAcetam 500 MG in DEXTROSE 5%-WATER 100 ML IV SCH ×2 (06:21→20:00)
[2016-10-08 07:38] VITALS: BP 145/74
[2016-10-08] MEDS: AmLODIPine BESYLATE 5 MG TABLET PO SCH (08:57)
[2016-10-08] MEDS: ATORVASTATIN CALCIUM 20 MG TABLET PO SCH (08:57)
[2016-10-08] MEDS: PANTOPRAZOLE SODIUM 40 MG DR TABLET PO SCH ×2 (08:57→09:00)
[2016-10-08] MEDS: LEVOFLOXACIN 750 MG/D5% WATER 150 ML IV SCH (08:58)
[2016-10-08 11:15] VITALS: BP 134/78
[2016-10-08] MEDS: ACETAMINOPHEN 325 MG TABLET PO PRN (12:44)
[2016-10-08 15:13] VITALS: BP 108/64
[2016-10-08 19:21] VITALS: BP 118/64
[2016-10-08 23:40] VITALS: BP 120/70
[2016-10-09] MEDS: DEXTROSE 5%-WATER 1,000 ML IV SCH (04:51)
[2016-10-09] MEDS: MORPHINE SULFATE 100 MG/NS/PF 100 ML IV PRN (04:55)
[2016-10-09 05:00] VITALS: BP 123/75
[2016-10-09] MEDS: LevETIRAcetam 500 MG in DEXTROSE 5%-WATER 100 ML IV SCH ×2 (06:04→18:38)
[2016-10-09 07:02] VITALS: BP 118/63
[2016-10-09] MEDS: ATORVASTATIN CALCIUM 20 MG TABLET PO SCH (08:59)
[2016-10-09] MEDS: AmLODIPine BESYLATE 5 MG TABLET PO SCH (08:59)
[2016-10-09 11:25] VITALS: BP 117/60
[2016-10-09] MEDS: ACETAMINOPHEN 325 MG TABLET PO PRN (11:36)
[2016-10-09 12:02] LABS: GLUCOSE COMMENT 1 Received Meds; GLUCOSE,POINT OF CARE 174 MG/DL (70-110)
[2016-10-09 15:15] VITALS: BP 108/50
[2016-10-09 19:58] VITALS: BP 131/55
[2016-10-09] MEDS ORDERED: LORazepam 2 MG/ML VIAL IVP PRN (20:30)
[2016-10-09] MEDS ORDERED: ATROPINE SULFATE 1% 15 ML OPHTHALMIC SOLUTION SL PRN (20:30)
[2016-10-10] MEDS ORDERED: PANTOPRAZOLE SODIUM 40 MG/VIAL IVP SCH (09:00)
== END 2016-10-09 20:40 | disposition expired | DRG 25 ==
LOC: EMS 12:16 → 5S 18:08 → ICU 10-01 19:29 → 6N 10-07 20:15
PROVIDERS: ADMIT Family Medicine; ATTEND Family Medicine
PROC: 5A1955Z Respiratory Ventilation, Greater than 96 Consecutive Hours (ICD-10-PCS; 2016-10-01)
PROC: 0BH17EZ Insertion of Endotracheal Airway into Trachea, Via Natural or Artificial Opening (ICD-10-PCS; 2016-10-01)
PROC: 00C40ZZ Extirpation of Matter from Intracranial Subdural Space, Open Approach (ICD-10-PCS; principal; 2016-10-01 18:00)
PROC: 02HV33Z Insertion of Infusion Device into Superior Vena Cava, Percutaneous Approach (ICD-10-PCS; 2016-10-03)
PROC: B548ZZA Ultrasonography of Superior Vena Cava, Guidance (ICD-10-PCS; 2016-10-03)
DX: I62.01 Nontraumatic acute subdural hemorrhage (principal); J96.00 Acute respiratory failure, unspecified whether with hypoxia or hypercapnia; G93.40 Encephalopathy, unspecified; G93.5 Compression of brain; E87.0 Hyperosmolality and hypernatremia; T79.7XXA Traumatic subcutaneous emphysema, initial encounter; I61.5 Nontraumatic intracerebral hemorrhage, intraventricular; I95.9 Hypotension, unspecified; M25.571 Pain in right ankle and joints of right foot; B96.1 Klebsiella pneumoniae [K. pneumoniae] as the cause of diseases classified elsewhere; Z66 Do not resuscitate; I67.2 Cerebral atherosclerosis; N28.9 Disorder of kidney and ureter, unspecified; S00.03XA Contusion of scalp, initial encounter; I11.9 Hypertensive heart disease without heart failure; E55.9 Vitamin D deficiency, unspecified; F17.200 Nicotine dependence, unspecified, uncomplicated; G40.409 Other generalized epilepsy and epileptic syndromes, not intractable, without status epilepticus; G93.89 Other specified disorders of brain; I25.10 Atherosclerotic heart disease of native coronary artery without angina pectoris; I25.2 Old myocardial infarction; Z79.899 Other long term (current) drug therapy; Z82.3 Family history of stroke; Z91.81 History of falling
CPT/HCPCS: 70450; 73700; 82805; 82962; 83735; 84100; 84295; 84443; 85007; 86850; 86900; 86901; 86920; 87070; 87081; 87205; 93005; 93306; 93971; 94002; 94003; 99291; C1713; J0360; J0690; J0712; J0744; J1165; J1644; J1956; J2060; J2150; J2250; J2270; J2370; J2704; J3010; J3370; J3475; J3490; J7030; J7040; J7050; J7060; J7120